=== PATIENT | female | born 1945 | race Caucasian/White ===

== ENCOUNTER 2017-08-23 20:46 | Emergency (ER) | payer MEDICARE ==
[~2017-08-23] VITALS: Ht 157.5 cm; Wt 57.1 kg
[2017-08-23 20:49] VITALS: BP 116/80
[2017-08-23] MEDS ORDERED: PROPRANOLOL (21:27)
[2017-08-23] MEDS ORDERED: PRAVASTATIN (21:27)
[2017-08-23] MEDS ORDERED: LEVO88TA2 PO (21:27)
[2017-08-23] MEDS ORDERED: LISINOPRIL (21:27)
== END 2017-08-23 22:20 | disposition home or self-care (01) ==
LOC: ED 21:55
DX: S40.011A Contusion of right shoulder, initial encounter (principal); G89.11 Acute pain due to trauma; W01.0XXA Fall on same level from slipping, tripping and stumbling without subsequent striking against object, initial encounter; Y93.89 Activity, other specified; Y92.89 Other specified places as the place of occurrence of the external cause; Y99.8 Other external cause status
CPT/HCPCS: 99284